=== PATIENT | male | born 2000 | race Caucasian/White ===

== ENCOUNTER → 2024-04-29 14:14 | Outpatient (REF) | payer OTHER, SELFPAY | LOC: RAD 14:14 | PROVIDERS: ATTENDING PHYSICIAN Internal Medicine Critical Care Medicine | DX: R05.3 Chronic cough (principal) | CPT/HCPCS: 71046 ==

== ENCOUNTER → 2024-05-06 10:54 | Outpatient (REF) | payer OTHER, SELFPAY | LOC: HWRAD 10:54 | PROVIDERS: ATTENDING PHYSICIAN Internal Medicine Critical Care Medicine; FAMILY PHYSICIAN Registered Nurse | DX: J21.9 Acute bronchiolitis, unspecified (principal) | CPT/HCPCS: 71250 ==